=== PATIENT | male | born 1970 | race American Indian/Alaskan Native ===

== ENCOUNTER 2018-01-03 09:33 | Emergency (ER) | payer OTHER ==
--- NOTE | 2018-01-03 11:05 | Emergency Department Report ---
ED Back Pain/Injury HPI - General Chief Complaint: Back Pain/Injury Stated Complaint: LOWER BACK AND CHEST PAIN Time Seen by Provider: 01/03/18 10:47 Source: patient Limitations: No Limitations - History of Present Illness Initial Comments: This is a 47-year-old -[place] male who presents with low back pain for 3-4 weeks and intermittent right-sided chest pain. 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 He has taken ibuprofen every now and then for pain with no improvement of symptoms. Patient reports pain is intermittent with sharp pains. Pain is at 7 out of 10 on pain scale and nonradiating. Pain is worse with movement. States right sided chest pain is worse with touch. Denies shortness of breath, fever, numbness or tingling, change in voiding or bowel pattern. MD Complaint: back pain -: week(s) (3-4 weeks) Similar Symptoms Previously: No Place: work Radiation: none Severity: moderate Severity scale (0 -10): 7 Quality: sharp, aching Consistency: intermittent Improves With: none Worsens With: movement Context: while lifting Associated Symptoms: chest pain (right sided chest pain). denies: confusion, weakness, numbness, difficulty walking, cough, difficulty urinating, diaphoresis , incontinence, fever/chills, constipation, headaches, abdominal pain, loss of appetite, malaise, nausea/vomiting, rash, seizure, shortness of breath, syncope Treatments Prior to Arrival: NSAIDS - Related Data Previous Rx's Medication Instructions Recorded Last Taken Type Ibuprofen [Motrin 800 MG tab] 800 mg PO Q8HR PRN #20 tablet 01/03/18 Unknown Rx Tizanidine HCl [Zanaflex] 2 mg PO TID PRN #15 capsule 01/03/18 Unknown Rx Allergies Allergy/AdvReac Type Severity Reaction Status Date / Time No Known Allergies Allergy Unverified 01/03/18 09:42 ED Review of Systems ROS: Stated complaint: LOWER BACK AND CHEST PAIN Other details as noted in HPI Constitutional: denies: chills, fever Respiratory: denies: cough, shortness of breath, wheezing Cardiovascular: chest pain (right-sided chest pain). denies: palpitations, syncope, paroxysmal nocturnal dyspnea Gastrointestinal: denies: abdominal pain, nausea, diarrhea Musculoskeletal: back pain (bilateral low back pain). denies: joint swelling, arthralgia Skin: denies: rash, lesions Neurological: denies: headache, weakness, paresthesias Psychiatric: denies: anxiety, depression ED Back Pain Physical Exam - Exam General: Vital signs noted. No distress. Alert and acting appropriately. Back/Abdomen: Yes Sacroiliac Tenderness (bilateral), No Abdominal Tenderness, No Perithoracic Tenderness, No Perilumbar Tenderness, No Flank Tenderness, No Straight Leg Raise Pain Neuro: Yes Normal Sensation, Yes Normal DTR's, Yes Normal Gait, No Motor Weakness ED Course Vital Signs 01/03/18 09:42 Temperature 98 F Pulse Rate 91 H Respiratory 18 Rate Blood Pressure 144/94 O2 Sat by Pulse 99 Oximetry ED Medical Decision Making - Radiology Data Radiology results: report reviewed LUMBOSACRAL SPINE, 3 VIEWS: History: Back pain Findings: Mild disc space narrowing and facet arthropathy is identified at L5-S1. The remaining levels are within normal limits. The vertebral bodies, disk spaces and posterior elements are intact. No compression deformity or malalignment. The SI joints are symmetric and unremarkable. Impression: Early degenerative changes at L5-S1. No evidence for acute injury to the lumbar spine. - Medical Decision Making This is a 47 y.o. male presents with low back pain and right-sided chest pain for 3-4 weeks. Patient was examined by me. Vitals are normal and patient is in no acute distress. Obtained a urinalysis and x-ray of L-spine. X-rays read by radiologist and no acute findings. Urinalysis pending and patient is unable to leave sample. Patient informed of results. Right chest pain is reproducible, costochondritis. Start ibuprofen and tizanidine for pain. Plan discussed with patient to discharge home and treat outpatient. He agrees with ER plan. Patient discharged home in stable condition. Follow up with PCP in 2-3 days. Critical care attestation.: If time is entered above; I have spent that time in minutes in the direct care of this critically ill patient, excluding procedure time. ED Disposition Clinical Impression: Acute costochondritis, Strain of muscle, fascia and tendon of lower back, initial encounter Disposition: TO HOME OR SELFCARE Is pt being admited?: No Does the pt Need Aspirin: No Condition: Stable Instructions: Muscle Strain (ED), Costochondritis (ED) Additional Instructions: Take ibuprofen and flexeril as needed for pain control. Don't take flexeril while driving or operating heavy machinery, may cause drowsiness. Return to ER if chest pain unresolved, shortness of breath, or difficulty breathing. Rest, Use ice or heat on affected area for 20 minutes and off for 2 hours. Follow up with Primary Care Provider in 2-3 days. Prescriptions: Ibuprofen [Motrin 800 MG tab] 800 mg PO Q8HR PRN #20 tablet PRN Reason: Pain , Severe (7-10) Tizanidine HCl [Zanaflex] 2 mg PO TID PRN #15 capsule PRN Reason: Muscle Spasm Referrals: [facility] [Outside] - 3-5 Days [facility] [Outside] - 3-5 Days [facility] [Outside] - 3-5 Days Time of Disposition: 13:21 Print Language: BENGALI
[2018-01-03 13:39] VITALS: BP 130/80
--- NOTE | 2018-01-03 13:54 | XRay Report ---
LUMBOSACRAL SPINE, 3 VIEWS: History: Back pain Findings: Mild disc space narrowing and facet arthropathy is identified at L5-S1. The remaining levels are within normal limits. The vertebral bodies, disk spaces and posterior elements are intact. No compression deformity or malalignment. The SI joints are symmetric and unremarkable. Impression: Early degenerative changes at L5-S1. No evidence for acute injury to the lumbar spine.
[2018-01-03 15:00] LABS: Bilirubin,Urine NEG (Negative); Blood,Urine SM (Negative); Color,Urine Yellow (Yellow); Mucus,Urine FEW /HPF; Protein,Urine <15 mg/dL mg/dL (Negative); WBC,Urine < 1.0 /HPF (0.0-6.0)
== END 2018-01-03 13:37 | disposition home or self-care (01) ==
LOC: ED 09:33
DX: S39.012A Strain of muscle, fascia and tendon of lower back, initial encounter (principal); M94.0 Chondrocostal junction syndrome [Tietze]; X58.XXXA Exposure to other specified factors, initial encounter; Y93.89 Activity, other specified; Y99.8 Other external cause status; Y92.69 Other specified industrial and construction area as the place of occurrence of the external cause
CPT/HCPCS: 72100; 81001; 93005; 93010

== ENCOUNTER 2018-03-19 09:21 | Emergency (ER) | payer SELFPAY ==
[2018-03-19 09:44] VITALS: BP 138/88
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
== END 2018-03-19 11:40 | disposition left against medical advice (07) ==
LOC: ED 09:21
DX: S09.90XA Unspecified injury of head, initial encounter (principal); K92.2 Gastrointestinal hemorrhage, unspecified; X58.XXXA Exposure to other specified factors, initial encounter; Y93.89 Activity, other specified; Y99.8 Other external cause status; Y92.89 Other specified places as the place of occurrence of the external cause
CPT/HCPCS: 99282